=== PATIENT | female | born 1965 | race Caucasian/White ===

== ENCOUNTER → 2023-05-16 | Outpatient (CLI) | payer OTHER ==
[2023-05-16 09:59] LABS: BASOPHILS ABSOLUTE AUTO 0.03 K/mm3 (0.00-0.23); BASOPHILS PERCENT AUTO 1 % (0-2); EOSINOPHILS ABSOLUTE AUTO 0.12 K/mm3 (0.00-0.68); EOSINOPHILS PERCENT AUTO 2 % (0-6); Hematocrit 40.8 % (33.0-51.0); IMMATURE GRAN ABSOLUTE AUTO 0.01 K/mm3 (0.00-0.10); IMMATURE GRAN PERCENT AUTO 0 % (0-1); LYMPHOCYTES ABSOLUTE AUTO 1.78 K/mm3 (0.84-5.20); LYMPHOCYTES PERCENT AUTO 30 % (21-46); MONOCYTES ABSOLUTE AUTO 0.55 K/mm3 (0.16-1.47); MONOCYTES PERCENT AUTO 9 % (4-13); Mean Corpuscular HGB 28.1 pg (26.0-34.0); Mean Corpuscular HGB Conc 34.3 g/dL (31.5-36.5); Mean Corpuscular Volume 82 fL (80-100); Mean Platelet Volume 9.7 fL (9.1-12.4); NEUTROPHILS ABSOLUTE AUTO 3.42 K/mm3 (1.96-9.15); NEUTROPHILS PERCENT AUTO 58 % (41-73); Platelet Count 349 K/mm3 (150-400); RDW Coefficient Variation 12.5 % (11.7-14.2); RDW Standard Deviation 37.4 fL (35.1-46.3); Red Blood Cell Count 4.98 M/mm3 (3.80-5.20); White Blood Cell Count 5.91 K/mm3 (4.00-11.30)
[2023-05-16 18:59] LABS: Albumin/Globulin Ratio 1.1 (0.8-1.8); Bilirubin, Total 0.5 mg/dL (0.1-1.0); Bun/Creatinine Ratio 23.7 (12.0-20.0); Calcium, Blood 9.5 mg/dL (8.5-10.1); Creatinine, Blood 0.59 mg/dL (0.40-1.00); Globulin, Blood 3.5 g/dL (2.2-4.0); Total Protein, Blood 7.5 g/dL (6.4-8.2)
== END | disposition home or self-care (01) ==
LOC: LAB 08:31 → LAB SHORT 08:31
PROVIDERS: Nurse Practitioner Family
DX: E11.65 Type 2 diabetes mellitus with hyperglycemia (principal); I10 Essential (primary) hypertension
CPT/HCPCS: 80053; 83036; 85025

== ENCOUNTER 2023-09-21 18:16 | Observation (INO) | payer OTHER ==
[~2023-09-21] VITALS: Ht 167.6 cm; Wt 76.7 kg
[2023-09-21 19:08] LABS: Bicarbonate Venous 9.5 mmol/L (24.0-30.0); PCO2 Venous 18.8 mmHg (38-42)
[2023-09-21] MEDS ORDERED: Metoclopramide HCl 5MG / ML 2ML Vial IV ONE (19:45)
[2023-09-21] MEDS ORDERED: NS 1,000 ML IV SCH ×2 (19:45→20:40)
[2023-09-21] MEDS ORDERED: Insulin Human Regular 100 UNIT in NS 100 ML IV SCH ×2 (19:45→22:15)
[2023-09-21 20:06] LABS: Beta-hydroxybutyrate 114.8 mg/dL (0.2-2.8)
[2023-09-21] MEDS ORDERED: Droperidol 5 mg/2 ml Vial IV ONE (20:40)
[2023-09-21 20:46] LABS: Source, Urine Clean Catch
[2023-09-21 20:54] LABS: Appearance, Urine Clear (Clear); Bilirubin, Urine Neg (Neg); Blood, Urine Neg (Neg); Color, Urine Yellow (P-Yellow); Glucose Qualitative, Urine 4+ (Neg); Ketones, Urine 4+ (Neg); Leukocyte Esterase, Urine Neg (Neg); Nitrite, Urine Neg (Neg); Protein, Urine 1+ (Neg); Urobilinogen, Urine NORM (Normal)
[2023-09-21 21:58] LABS: Glucose, Blood 552 mg/dL (70-99)
[2023-09-21] MEDS ORDERED: Lactated Ringer's 1,000 ML IV SCH ×2 (22:05→22:10)
[2023-09-21] MEDS ORDERED: Metoclopramide HCl 5MG / ML 2ML Vial IV PRN (22:05)
[2023-09-21] MEDS ORDERED: Ondansetron HCl 2 MG / ML 2ML Vial IV PRN (22:05)
[2023-09-21] MEDS ORDERED: Acetaminophen 325 MG TABLET PO PRN (22:05)
[2023-09-21] MEDS ORDERED: FLU VACC QS2023-24(6MOS UP)/PF 60 MCG/0.5 ML SYRINGE IM SCH (22:05)
[2023-09-21 22:07] LABS: Bun/Creatinine Ratio 37.8 (12.0-20.0); Calcium, Blood 8.4 mg/dL (8.5-10.1); Creatinine, Blood 0.85 mg/dL (0.40-1.00); Potassium, Blood 4.5 mmol/L (3.5-5.5)
[2023-09-21] MEDS ORDERED: Dextrose 50% 50 ML Syringe IV PRN (22:10)
[2023-09-21] MEDS ORDERED: HydrALAZINE HCl 20 MG / ML 1ML Vial IV PRN (22:15)
[2023-09-21 23:00] VITALS: BP 139/79
--- NOTE | 2023-09-21 23:00 | NUR ---
ADMIT ASSESSMENT PT ARRIVED FROM ER VIA GURNEY. AWAKE A&O. TRANSFERED SELF TO BED. GAIT STEADY. ABLE TO ANSWER QUESTIONS. PT VERY SLEEPY DUE TO INAPSINE GIVEN IN ER. PT DRY HEAVING, MED WITH REGLAN. BLOOD GLUCOSE 354, INSULIN GTT INFUSING AT 7.9 UNITS/HR. LR STARTED AT 200 ML/HR. IV 20 G TO RIGHT AC SALINE LOCKED. ABLE TO FLUSH AND DRAW BLOOD WITHOUT DIFFICULTY. IV 20 G TO LEFT FOREARM WITH INSULIN AND LR INFUSING. ABLE TO FLUSH AND DRAW BLOOD WITHOUT DIFFICULTY. PT TURNING AND MOVING SELF IN BED. REFUSES HOSPITAL GOWN AT THIS TIME.
[2023-09-21] MEDS ORDERED: METF500 PO ×2 (23:13)
[2023-09-21 23:15] VITALS: BP 140/68
[2023-09-21 23:30] VITALS: BP 120/66
[2023-09-21 23:45] VITALS: BP 168/73
[2023-09-22] VITALS (20 sets, daily range): BP systolic 115–154; BP diastolic 57–118
[2023-09-22] LABS: Bun/Creatinine Ratio 38.8 (12.0-20.0); Calcium, Blood 8.5 mg/dL (8.5-10.1); Creatinine, Blood 0.8 mg/dL (0.40-1.00); Potassium, Blood 4.1 mmol/L (3.5-5.5)
--- NOTE | 2023-09-22 00:04 | NUR ---
CRITICAL LAB CALL TO DR DENNISON REGARDING CRITICAL CO2 OF 7. NEW ORDERS RECEIVED. BLOOD GLUCOSE 298, INCREASED INSULIN TO 8 UNITS/HR. WAITING FOR VBG
[2023-09-22 00:46] LABS: Bicarbonate Venous 11.4 mmol/L (24.0-30.0); PCO2 Venous 22.3 mmHg (38-42); PO2 Venous 144 mmHg (38-42)
[2023-09-22 00:47] LABS: pH Blood Venous 7.18 (7.34-7.37)
--- NOTE | 2023-09-22 00:51 | NUR ---
CRITICAL LAB VBG RESULTS CALLED TO DR DENNISON, NO NEW ORDERS AT THIS TIME
[2023-09-22] MEDS ORDERED: D5W-1/2NS 1,000 ML IV SCH (01:00)
--- NOTE | 2023-09-22 01:00 | NUR ---
BLOOD GLUCOSE 273, IV FLUID CHANGED TO D5 1/2 AT 150 ML/HR. INSULIN GTT INCREASED TO 9 UNITS/HR. PT CONT TO HAVE NAUSEA AND DRY HEAVING. MED WITH VENUS.
[2023-09-22] MEDS ORDERED: Prochlorperazine Edisylate 10 mg Vial IV PRN (02:55)
[2023-09-22] MEDS ORDERED: LORazepam 2 MG/ML 1ML Injection IV PRN (02:55)
[2023-09-22 04:06] LABS: Bicarbonate Venous 15.9 mmol/L (24.0-30.0); PCO2 Venous 23.7 mmHg (38-42); pH Blood Venous 7.34 (7.34-7.37)
[2023-09-22 04:54] LABS: Bun/Creatinine Ratio 41.6 (12.0-20.0); Calcium, Blood 9.3 mg/dL (8.5-10.1); Creatinine, Blood 0.63 mg/dL (0.40-1.00); Potassium, Blood 3.8 mmol/L (3.5-5.5)
[2023-09-22] MEDS ORDERED: Potassium Chloride 40 MEQ in NS 250 ML IV ONE (05:10)
[2023-09-22] MEDS ORDERED: NS 250 ML IV PRN (05:25)
--- NOTE | 2023-09-22 06:03 | NUR ---
SHIFT SUMMARY PT ADMITTED DURING THE NIGHT WITH DKA AND COVID. PT AWAKE, A&O. MOVING SELF IN BED. LUNGS CLEAR ON ROOMAIR. RESP EVEN AND NONLABORED. DENIES SOB OR COUGH. HEART RATE IMPROVED DURING THE NIGHT FOR 120'S DOWN TO 90-100 SINUS. BP STABLE. MED DURING THE NIGHT WITH REGLAN AND ZOFRAN FOR NAUSEA. PT REPORTS IMPROVMENT AT THIS TIME WITH NO NAUSEA. PT TAKING ICE CHIP. UP TO VOID WITH STANDBY ASSIST FOR LINES. VOIDING DARK YELLOW URINE. KCL INFUSING TO RIGHT AC. PT C/O PAIN WITH POTASSIUM INFUSION. DECREASED RATE OF POTASSIUM AND INCREASE NS KVO TO DILUTE POTASSIUM. D5 1/2 NS AT 150 ML/HR AND INSULIN GTT AT 7 UNITS/HR. REPORT TO ON COMING NURSE
--- NOTE | 2023-09-22 07:00 | NUR ---
ASSUME CARE: I have assumed care of this patient.
[2023-09-22 07:28] LABS: Bun/Creatinine Ratio 39.3 (12.0-20.0); Calcium, Blood 8.7 mg/dL (8.5-10.1); Creatinine, Blood 0.61 mg/dL (0.40-1.00); Potassium, Blood 3.5 mmol/L (3.5-5.5)
[2023-09-22] MEDS ORDERED: Insulin NPH 100 Unit / ML 10ML Vial SC ONE (08:35)
[2023-09-22] MEDS ORDERED: Enoxaparin 40 MG/0.4 ML SYR SC SCH (09:00)
[2023-09-22 09:07] LABS: BASOPHILS ABSOLUTE AUTO 0.02 K/mm3 (0.00-0.23); BASOPHILS PERCENT AUTO 0 % (0-2); EOSINOPHILS PERCENT AUTO 0 % (0-6); Hematocrit 38.2 % (33.0-51.0); IMMATURE GRAN ABSOLUTE AUTO 0.08 K/mm3 (0.00-0.10); IMMATURE GRAN PERCENT AUTO 1 % (0-1); LYMPHOCYTES ABSOLUTE AUTO 2.13 K/mm3 (0.84-5.20); LYMPHOCYTES PERCENT AUTO 15 % (21-46); MONOCYTES ABSOLUTE AUTO 1.49 K/mm3 (0.16-1.47); MONOCYTES PERCENT AUTO 11 % (4-13); Mean Corpuscular Volume 82 fL (80-100); Mean Platelet Volume 10.1 fL (9.1-12.4); NEUTROPHILS ABSOLUTE AUTO 10.39 K/mm3 (1.96-9.15); NEUTROPHILS PERCENT AUTO 74 % (41-73); Platelet Count 412 K/mm3 (150-400); RDW Coefficient Variation 12.8 % (11.7-14.2); RDW Standard Deviation 38.3 fL (35.1-46.3); Red Blood Cell Count 4.65 M/mm3 (3.80-5.20); White Blood Cell Count 14.11 K/mm3 (4.00-11.30)
[2023-09-22] MEDS ORDERED: Insulin Human Lispro 100 Units/ML 3ML Syringe SC SCH ×2 (11:30)
[2023-09-22] MEDS ORDERED: Lactated Ringer's 500 ML IV STA (11:39)
[2023-09-22 14:04] LABS: Bun/Creatinine Ratio 34.5 (12.0-20.0); Calcium, Blood 9.1 mg/dL (8.5-10.1); Creatinine, Blood 0.58 mg/dL (0.40-1.00)
[2023-09-22] MEDS ORDERED: LOSA25 PO ×2 (14:59)
[2023-09-22] MEDS ORDERED: AMARYL1 M1 PO ×2 (15:00)
[2023-09-22] MEDS ORDERED: PRAVASTATIN SOD40 MG PO ×2 (15:01)
[2023-09-22] MEDS ORDERED: BASAGLAR K100 UNIT/6 SC ×2 (15:02)
[2023-09-22] MEDS ORDERED: ONDA4ODT ×2 (16:00)
--- NOTE | 2023-09-22 16:02 | NUR ---
PROVIDER PHONE CALL: Spoke with Dr Beauchamp regarding medication req and if she would like pt to continue long acting insulin at home. Dr Beauchamp would like pt to continue with insulin. Will add to discharge med req
--- NOTE | 2023-09-22 16:26 | NUR ---
DISCHARGE: Pt discharged home. She was wheeled down to taxi by [employer] to take her to her vehicle at [facility]. Pt verbalized understanding and agreement of discharge instructions. Packet given. Rx faxed to pharmacy.
[2023-09-23] MEDS ORDERED: FAMO20 PO (05:48)
[2023-09-23] MEDS ORDERED: METO10 PO (05:48)
[2023-09-23] MEDS ORDERED: SUCR1 PO (05:48)
== END 2023-09-22 16:24 | disposition home or self-care (01) ==
LOC: ER 18:16 → ICUE 18:17 → ER 22:20 → ICUE 22:20
PROVIDERS: Family Medicine; Nurse Practitioner Acute Care; Student in an Organized Health Care Education/Training Program; ADMIT Student in an Organized Health Care Education/Training Program
DX: E11.10 Type 2 diabetes mellitus with ketoacidosis without coma (principal); A41.9 Sepsis, unspecified organism; U07.1 COVID-19; E86.0 Dehydration; Z88.8 Allergy status to other drugs, medicaments and biological substances; N17.9 Acute kidney failure, unspecified; I10 Essential (primary) hypertension; R11.2 Nausea with vomiting, unspecified; Z79.4 Long term (current) use of insulin
CPT/HCPCS: 36415; 71046; 80048; 80053; 82010; 82803; 82947; 83690; 83930; 85025; 93005; 93010; 96361; 96374; 96375; 99285-25; A9270; G0008; G0378; J1200; J1650; J1790; J1815; J1885; J2405; J2765; J3480; J7030; J7042; J7050; J7120; Q2036

== ENCOUNTER → 2023-09-21 | Outpatient (CLI) | payer OTHER ==
[~2023-09-21] MED LIST: AMARYL1 M1 PO; BASAGLAR K100 UNIT/6 SC; FAMO20 PO; LOSA25 PO; METF500 PO; METO10 PO; ONDA4ODT; PRAVASTATIN SOD40 MG PO; SUCR1 PO
[2023-09-21 17:25] LABS: BASOPHILS ABSOLUTE AUTO 0.03 K/mm3 (0.00-0.23); BASOPHILS PERCENT AUTO 0 % (0-2); EOSINOPHILS PERCENT AUTO 0 % (0-6); Hematocrit 48.5 % (33.0-51.0); Hemoglobin 16.1 g/dL (11.5-16.0); IMMATURE GRAN ABSOLUTE AUTO 0.08 K/mm3 (0.00-0.10); IMMATURE GRAN PERCENT AUTO 1 % (0-1); LYMPHOCYTES ABSOLUTE AUTO 1.27 K/mm3 (0.84-5.20); LYMPHOCYTES PERCENT AUTO 11 % (21-46); MONOCYTES PERCENT AUTO 3 % (4-13); Mean Corpuscular HGB 28.1 pg (26.0-34.0); Mean Corpuscular HGB Conc 33.2 g/dL (31.5-36.5); Mean Corpuscular Volume 85 fL (80-100); Mean Platelet Volume 10.4 fL (9.1-12.4); NEUTROPHILS ABSOLUTE AUTO 9.98 K/mm3 (1.96-9.15); NEUTROPHILS PERCENT AUTO 85 % (41-73); Platelet Count 480 K/mm3 (150-400); RDW Coefficient Variation 12.5 % (11.7-14.2); RDW Standard Deviation 37.9 fL (35.1-46.3); Red Blood Cell Count 5.73 M/mm3 (3.80-5.20); White Blood Cell Count 11.76 K/mm3 (4.00-11.30)
[2023-09-21 17:35] LABS: Albumin, Blood 4.2 g/dL (3.4-5.0); Bilirubin, Total 0.5 mg/dL (0.1-1.0); Bun/Creatinine Ratio 17.7 (12.0-20.0); Creatinine, Blood 1.75 mg/dL (0.40-1.00); Globulin, Blood 4.4 g/dL (2.2-4.0); Potassium, Blood 4.6 mmol/L (3.5-5.5); Total Protein, Blood 8.6 g/dL (6.4-8.2)
== END | disposition home or self-care (01) ==
LOC: LAB SHORT 17:20 → LAB 17:20
PROVIDERS: Physician Assistant
DX: R11.2 Nausea with vomiting, unspecified (principal)
CPT/HCPCS: 80053; 85025

== ENCOUNTER 2023-09-22 22:29 | Emergency (ER) | payer OTHER ==
[~2023-09-22] VITALS: Ht 167.6 cm; Wt 77.1 kg
[~2023-09-22 22:29] MED LIST changes: -FAMO20 PO; -METO10 PO; -SUCR1 PO
[2023-09-22] MEDS ORDERED: Ondansetron HCl 2 MG / ML 2ML Vial IV ONE (23:40)
[2023-09-23 00:05] LABS: BASOPHILS ABSOLUTE AUTO 0.03 K/mm3 (0.00-0.23); BASOPHILS PERCENT AUTO 0 % (0-2); EOSINOPHILS ABSOLUTE AUTO 0.01 K/mm3 (0.00-0.68); EOSINOPHILS PERCENT AUTO 0 % (0-6); Hematocrit 37.7 % (33.0-51.0); IMMATURE GRAN ABSOLUTE AUTO 0.04 K/mm3 (0.00-0.10); IMMATURE GRAN PERCENT AUTO 0 % (0-1); LYMPHOCYTES ABSOLUTE AUTO 2.08 K/mm3 (0.84-5.20); LYMPHOCYTES PERCENT AUTO 16 % (21-46); MONOCYTES PERCENT AUTO 6 % (4-13); Mean Corpuscular HGB 28.1 pg (26.0-34.0); Mean Corpuscular HGB Conc 34.5 g/dL (31.5-36.5); Mean Corpuscular Volume 82 fL (80-100); Mean Platelet Volume 9.8 fL (9.1-12.4); NEUTROPHILS ABSOLUTE AUTO 10.19 K/mm3 (1.96-9.15); NEUTROPHILS PERCENT AUTO 78 % (41-73); Platelet Count 359 K/mm3 (150-400); RDW Coefficient Variation 12.8 % (11.7-14.2); RDW Standard Deviation 38.1 fL (35.1-46.3); Red Blood Cell Count 4.62 M/mm3 (3.80-5.20); White Blood Cell Count 13.15 K/mm3 (4.00-11.30)
[2023-09-23 00:20] LABS: Albumin, Blood 3.2 g/dL (3.4-5.0); Albumin/Globulin Ratio 0.9 (0.8-1.8); Bilirubin, Total 0.6 mg/dL (0.1-1.0); Bun/Creatinine Ratio 26.1 (12.0-20.0); Calcium, Blood 8.6 mg/dL (8.5-10.1); Creatinine, Blood 0.54 mg/dL (0.40-1.00); Globulin, Blood 3.4 g/dL (2.2-4.0); Potassium, Blood 4.1 mmol/L (3.5-5.5); Total Protein, Blood 6.6 g/dL (6.4-8.2)
[2023-09-23 02:26] LABS: Base Excess Venous -7.5 mmol/L; Bicarbonate Venous 19.2 mmol/L (24.0-30.0); PCO2 Venous 32.9 mmHg (38-42); pH Blood Venous 7.35 (7.34-7.37)
[2023-09-23 03:45] VITALS: BP 155/82
[2023-09-23] MEDS ORDERED: Mag Hydrox/AL Hydrox/Simeth 30 ML UDC PO ONE (04:45)
[2023-09-23] MEDS ORDERED: NS 1,000 ML IV SCH (04:45)
[2023-09-23] MEDS ORDERED: Lidocaine 2% Viscous Soln 15 ML UDC PO ONE (04:45)
[2023-09-23] MEDS ORDERED: Ketorolac Tromethamine 30mg Vial IV ONE (04:45)
[2023-09-23] MEDS ORDERED: Metoclopramide HCl 5MG / ML 2ML Vial IV ONE (04:45)
[2023-09-23] MEDS ORDERED: DiphenhydrAMINE HCl 50 MG/ML 1ML Vial IV ONE (04:45)
[2023-09-23] MEDS ORDERED: METO10 PO (05:48)
[2023-09-23] MEDS ORDERED: FAMO20 PO (05:48)
[2023-09-23] MEDS ORDERED: SUCR1 PO (05:48)
== END 2023-09-23 06:08 | disposition home or self-care (01) ==
LOC: ER 22:29
PROVIDERS: Physician Assistant; Student in an Organized Health Care Education/Training Program
DX: E11.65 Type 2 diabetes mellitus with hyperglycemia (principal); R10.13 Epigastric pain; R11.2 Nausea with vomiting, unspecified; Z79.4 Long term (current) use of insulin; Z79.84 Long term (current) use of oral hypoglycemic drugs; Z79.899 Other long term (current) drug therapy; Z88.8 Allergy status to other drugs, medicaments and biological substances; E11.10 Type 2 diabetes mellitus with ketoacidosis without coma; A41.9 Sepsis, unspecified organism; U07.1 COVID-19; E86.0 Dehydration; N17.9 Acute kidney failure, unspecified; I10 Essential (primary) hypertension
CPT/HCPCS: 36415; 71046; 80048; 80053; 82010; 82803; 82947; 83690; 83930; 85025; 93005; 93010; 96361; 96374; 96375; 99285-25; A9270; G0008; G0378; J1200; J1650; J1790; J1815; J1885; J2405; J2765; J3480; J7030; J7042; J7050; J7120; Q2036

== ENCOUNTER → 2024-04-23 | Outpatient (CLI) | payer OTHER ==
[~2024-04-23] MED LIST changes: +FAMO20 PO; +METO10 PO; +SUCR1 PO
[2024-05-01 13:50] LABS: HPV GENOTYPE 16 BY PCR Negative; HPV GENOTYPE 18 BY PCR Negative; HPV SOURCE Cervical; HPV, OTHER HIGH RISK BY PCR Negative
== END ==
LOC: LAB 13:16 → LAB SHORT 13:16
PROVIDERS: Nurse Practitioner Family
DX: Z12.4 Encounter for screening for malignant neoplasm of cervix (principal)
CPT/HCPCS: 87624; 88142